=== PATIENT | male | born 1965 | race Caucasian/White ===

== ENCOUNTER 2020-11-13 13:47 | Emergency (ER) | payer SELFPAY ==
[2020-11-13] MEDS ORDERED: Sodium Chloride 0.9% 10 ML Syringe FLUSH PRN (13:55)
[2020-11-13 13:57] VITALS: BP 128/85; PULSE 95
[2020-11-13] MEDS ORDERED: Aspirin 81 MG Tab.Chew PO ONE (13:57)
--- NOTE | 2020-11-13 14:28 | EDM.PDOC ---
ED HPI GENERAL MEDICAL PROBLEM - General Chief Complaint: Cardiovascular Problem Stated Complaint: CHEST TIGHTNESS/ DIABETIC/ ALL OVER PAIN Time Seen by Provider: 11/13/20 13:55 Source of Information: Reports: Patient, RN Notes Reviewed History Limitations: Reports: No Limitations - History of Present Illness INITIAL COMMENTS - FREE TEXT/NARRATIVE: Patient is a 55-year-old male who presents to the ER for his chest discomfort. Patient notes this has been going on since around Monday/Monday. He has been having intermittent issues, where he feels chest tightness in the morning. He states he has no chest tightness at this time. He notes that it does make some feel drained or fatigued. He is called off work a few times this week because he just could not get himself going enough to get to work. He also has a history of diabetes with ongoing neuropathy issues. He was a patient of Dr. Jeff Reynaga, but has since switched to Leonela Black. Patient's had no fevers or chills, cough or shortness of breath, or any sort of nausea/vomiting/diarrhea. He does note remote loss of appetite in the mornings when he is feeling unwell. He also states that he felt some "chest fluttering from time to time". Patient states that he has been told he has a history of a heart murmur, he has had rheumatic fever, and endocarditis. Patient denies any sort of cardiac history like CO/stents, or A. fib. - Related Data Allergies Allergy/AdvReac Type Severity Reaction Status Date / Time No Known Allergies Allergy Verified 11/13/20 13:57 Home Meds: Home Meds Dapagliflozin/Metformin HCl [Xigduo Xr 5 mg-1,000 mg Tablet] 1,000 mg PO DAILY 03/05/16 [History] Famotidine [Pepcid] 40 mg PO QAM #10 tablet 03/05/16 [Rx] Simvastatin [Zocor] 40 mg PO BEDTIME 03/05/16 [History] methylPREDNISolone [Medrol] 4 mg PO ASDIRECTED #21 dospk 03/05/16 [Rx] oxyCODONE HCl/Acetaminophen [oxyCODONE-Acetaminophen 5-325] 1 mg PO Q4H PRN 03/05/16 [History] Metoprolol Succinate 25 mg PO DAILY #30 tab.er.24h 11/13/20 [Rx] Rivaroxaban [Xarelto] 20 mg PO DAILY #30 tablet 11/13/20 [Rx] Past Medical History Cardiovascular History: Reports: High Cholesterol, Other (See Below) Other Cardiovascular History: endocarditis at 15 Neurological History: Reports: Neuropathy, Peripheral Endocrine/Metabolic History: Reports: Diabetes, Type II, Obesity/BMI 30+ Dermatologic History: Reports: Other (See Below) Other Dermatologic History: contact dermatitis - Infectious Disease History Infectious Disease History: Reports: Chicken Pox, Measles, Rheumatic Fever Social & Family History - Tobacco Use Tobacco Use Status *Q: Never Tobacco User - Recreational Drug Use Recreational Drug Use: No ED ROS GENERAL - Review of Systems Review Of Systems: Comprehensive ROS is negative, except as noted in HPI. ED EXAM, GENERAL - Physical Exam Exam: See Below Exam Limited By: No Limitations General Appearance: Alert, WD/WN, No Apparent Distress Respiratory/Chest: No Respiratory Distress, Lungs Clear, Normal Breath Sounds, No Accessory Muscle Use, Chest Non-Tender Cardiovascular: Normal Peripheral Pulses, No Edema, Other (regularly irregular) Peripheral Pulses: 2+: Radial (L), Radial (R) Extremities: Normal Inspection, Normal Capillary Refill Neurological: Alert, Oriented, Normal Cognition, No Motor/Sensory Deficits Psychiatric: Normal Affect, Normal Mood Skin Exam: Warm, Dry, Intact, Normal Color, No Rash #1 Interpretation EKG Date: 11/13/20 Time: 13:55 Rhythm: A-Fib (Rate of 70 to 155/min) Rate (Beats/Min): 89 [place]: Normal P-Wave: Present QRS: RBBB ST-T: Normal QT: Normal EKG Interpretation Comments: No obvious ischemia or acute ST changes noted, reviewed by myself and Dr. Zhang. Course - Vital Signs Last Recorded V/S: Last Vital Signs Temp 97.5 F 11/13/20 13:54 Pulse 95 11/13/20 13:54 Resp 18 11/13/20 13:54 BP 128/85 11/13/20 13:54 Pulse Ox 96 11/13/20 13:54 - Orders/Labs/Meds Orders: Active Orders 24 hr Category Date Time Status EKG Documentation Completion [RC] STAT Care 11/13/20 13:55 Ordered Peripheral IV Care [RC] . DIRECTED Care 11/13/20 13:55 Ordered Chest 1V Frontal [CR] Stat Exams 11/13/20 13:55 Ordered Sodium Chloride 0.9% [Saline Flush] Med 11/13/20 13:55 Ordered 10 ml FLUSH ASDIRECTED PRN Peripheral IV Insertion Adult [OM.PC] Stat Oth 11/13/20 13:55 Ordered Medication Orders Sodium Chloride (Sodium Chloride 0.9% 10 Ml Syringe) 10 ml FLUSH ASDIRECTED PRN PRN Reason: Keep Vein Open Last Admin: 11/13/20 14:02 Dose: 10 ml Documented by: ANN Labs: Laboratory Tests 11/13/20 11/13/20 11/13/20 Range/Units 14:00 14:00 14:00 WBC 3.32 L (4.23-9.07) K/mm3 RBC 4.94 (4.63-6.08) M/mm3 Hgb 14.3 (13.7-17.5) gm/dl Hct 42.4 (40.1-51.0) % MCV 85.8 (79.0-92.2) fl MCH 28.9 (25.7-32.2) pg MCHC 33.7 (32.2-35.5) g/dl RDW Std Deviation 39.4 (35.1-43.9) fL Plt Count 234 (163-337) K/mm3 MPV 9.8 (9.4-12.3) fl Neut % (Auto) 50.9 (34.0-67.9) % Lymph % (Auto) 30.4 (21.8-53.1) % [place] % (Auto) 13.3 H (5.3-12.2) % Eos % (Auto) 4.2 (0.8-7.0) Baso % (Auto) 0.6 (0.1-1.2) % Neut # (Auto) 1.69 L (1.78-5.38) K/mm3 Lymph # (Auto) 1.01 L (1.32-3.57) K/mm3 [place] # (Auto) 0.44 (0.30-0.82) K/mm3 Eos # (Auto) 0.14 (0.04-0.54) K/mm3 Baso # (Auto) 0.02 (0.01-0.08) K/mm3 PT 11.7 (9.7-12.0) SECONDS INR 1.10 APTT 28.2 (21.7-31.4) SECONDS Sodium 141 (136-145) mEq/L Potassium 4.1 (3.5-5.1) mEq/L Chloride 106 (98-107) mEq/L Carbon Dioxide 27 (21-32) mEq/L Anion Gap 12.1 (5-15) BUN 15 (7-18) mg/dL Creatinine 0.9 (0.7-1.3) mg/dL Est Cr Clr Drug Dosing 96.45 mL/min Estimated GFR (MDRD) > 60 (>60) mL/min BUN/Creatinine Ratio 16.7 (14-18) Glucose 247 H (74-106) mg/dL Calcium 8.1 L (8.5-10.1) mg/dL Magnesium 2.0 (1.8-2.4) mg/dl Total Bilirubin 0.7 (0.2-1.0) mg/dL AST 27 (15-37) U/L ALT 59 (16-63) U/L Alkaline Phosphatase 73 (46-116) U/L Troponin I < 0.017 (0.00-0.056) ng/mL NT-Pro-B Natriuret Pep (0-125) pg/mL Total Protein 6.8 (6.4-8.2) g/dl Albumin 3.6 (3.4-5.0) g/dl Globulin 3.2 gm/dL Albumin/Globulin Ratio 1.1 (1-2) 11/13/20 Range/Units 14:00 WBC (4.23-9.07) K/mm3 RBC (4.63-6.08) M/mm3 Hgb (13.7-17.5) gm/dl Hct (40.1-51.0) % MCV (79.0-92.2) fl MCH (25.7-32.2) pg MCHC (32.2-35.5) g/dl RDW Std Deviation (35.1-43.9) fL Plt Count (163-337) K/mm3 MPV (9.4-12.3) fl Neut % (Auto) (34.0-67.9) % Lymph % (Auto) (21.8-53.1) % [place] % (Auto) (5.3-12.2) % Eos % (Auto) (0.8-7.0) Baso % (Auto) (0.1-1.2) % Neut # (Auto) (1.78-5.38) K/mm3 Lymph # (Auto) (1.32-3.57) K/mm3 [place] # (Auto) (0.30-0.82) K/mm3 Eos # (Auto) (0.04-0.54) K/mm3 Baso # (Auto) (0.01-0.08) K/mm3 PT (9.7-12.0) SECONDS INR APTT (21.7-31.4) SECONDS Sodium (136-145) mEq/L Potassium (3.5-5.1) mEq/L Chloride (98-107) mEq/L Carbon Dioxide (21-32) mEq/L Anion Gap (5-15) BUN (7-18) mg/dL Creatinine (0.7-1.3) mg/dL Est Cr Clr Drug Dosing mL/min Estimated GFR (MDRD) (>60) mL/min BUN/Creatinine Ratio (14-18) Glucose (74-106) mg/dL Calcium (8.5-10.1) mg/dL Magnesium (1.8-2.4) mg/dl Total Bilirubin (0.2-1.0) mg/dL AST (15-37) U/L ALT (16-63) U/L Alkaline Phosphatase (46-116) U/L Troponin I (0.00-0.056) ng/mL NT-Pro-B Natriuret Pep 584 H (0-125) pg/mL Total Protein (6.4-8.2) g/dl Albumin (3.4-5.0) g/dl Globulin gm/dL Albumin/Globulin Ratio (1-2) Meds: Medications Generic Name Dose Route Start Last Admin Trade Name Freq PRN Reason Stop Dose Admin Sodium Chloride 10 ml 11/13/20 13:55 11/13/20 14:02 Sodium Chloride 0.9% 10 Ml Syringe FLUSH 10 ml ASDIRECTED PRN Administration Keep Vein Open Discontinued Medications Generic Name Dose Route Start Last Admin Trade Name Freq PRN Reason Stop Dose Admin Aspirin 324 mg 11/13/20 13:57 11/13/20 14:05 Aspirin 81 Mg Tab.Chew PO 11/13/20 13:58 324 mg ONETIME ONE Administration - Re-Assessments/Exams Free Text/Narrative Re-Assessment/Exam: 11/13/20 14:29 Patient presents to the ER for his ongoing chest discomfort. We will go ahead and get a EKG, chest x-ray, labs to rule out myocardial infarction in nature. EKG done at the time of triage does show atrial fibrillation at a rate of 70 to 155 bpm. He does have a right bundle branch block pattern as well determined by myself and Dr. Zhang. Again patient's not been told he has had atrial fibrillation in the past, so this would be new onset. 11/13/20 14:58 Labs have resulted, CBC does show a modestly decreased white count at 3.32, coagulation studies that are unremarkable, metabolic panel essentially unremarkable his glucose is 247, BNP is slightly elevated at 584. Patient's troponin is undetectably low. I did speak with Dr. Zhang regarding this patient's new onset A. fib, he does state that the patient should be placed on metoprolol succinate and started on a blood thinner. Departure - Departure Time of Disposition: 15:21 Disposition: Home, Self-Care 01 Condition: Good Clinical Impression: Atrial fibrillation by electrocardiogram, Chest tightness Prescriptions: Metoprolol Succinate 25 mg PO DAILY #30 tab.er.24h Rivaroxaban [Xarelto] 20 mg PO DAILY #30 tablet Instructions: Atrial Fibrillation, [id number] Referrals: Leonela Black NP [Primary Care Provider] - Forms: ED Department Discharge Additional Instructions: You were evaluated in the ER today for your chest discomfort and ongoing symptoms for roughly 1 week. At the time of triage, you were found to be in atrial fibrillation, which is a condition of the heart not pumping the blood effectively. Management of this is to be started on blood thinners, and a blood pressure medication that helps control heart rate. Dosing for both of these medications be 1 tablet daily. These medications were electronically prescribed to the clinic pharmacy located in the [facility]. You will need to follow-up with your regular care provider, sometime next week just to make sure that your symptoms are getting better as expected. All other laboratory evaluation done at today's visit, was unremarkable. You are not suffering from a heart attack at today's visit. Please return to the ER at any time if symptoms change or worsen. Sepsis Event Note (ED) - Evaluation Sepsis Screening Result: No Definite Risk - Focused Exam Vital Signs: Vital Signs Temp Pulse Resp BP Pulse Ox 11/13/20 13:54 97.5 F 95 18 128/85 96 - My Orders Last 24 Hours: My Active Orders 11/13/20 13:55 EKG Documentation Completion [RC] STAT Peripheral IV Care [RC] . DIRECTED Chest 1V Frontal [CR] Stat Sodium Chloride 0.9% [Saline Flush] 10 ml FLUSH ASDIRECTED PRN Peripheral IV Insertion Adult [OM.PC] Stat - Assessment/Plan Last 24 Hours: My Active Orders 11/13/20 13:55 EKG Documentation Completion [RC] STAT Peripheral IV Care [RC] . DIRECTED Chest 1V Frontal [CR] Stat Sodium Chloride 0.9% [Saline Flush] 10 ml FLUSH ASDIRECTED PRN Peripheral IV Insertion Adult [OM.PC] Stat
--- NOTE | 2020-11-16 07:17 | CR ---
Chest: Portable view of the chest was obtained. Comparison: No prior chest imaging. Heart size and mediastinum are normal. Lungs are clear with no acute parenchymal change. No acute osseous abnormality is appreciated. Impression: 1. Nothing acute is appreciated on portable chest x-ray. Diagnostic code #1
== END 2020-11-13 15:38 | disposition home or self-care (01) ==
LOC: JD.ED 13:47
DX: I48.91 Unspecified atrial fibrillation (principal); E78.00 Pure hypercholesterolemia, unspecified; E66.9 Obesity, unspecified; Z68.30 Body mass index [BMI] 30.0-30.9, adult; E11.40 Type 2 diabetes mellitus with diabetic neuropathy, unspecified; Z79.899 Other long term (current) drug therapy
CPT/HCPCS: 36415; 71045; 80053; 83735; 83880; 84484; 85025; 85610; 85730; 93005; 99285; A9270; 93010; 99284

== ENCOUNTER 2020-12-05 22:35 | Emergency (ER) | payer OTHER ==
--- NOTE | 2020-12-05 22:42 | EDM.PDOC ---
ED HPI GENERAL MEDICAL PROBLEM - General Chief Complaint: Chest Pain Stated Complaint: CHEST PAINS Time Seen by Provider: 12/05/20 22:42 Source of Information: Reports: Patient History Limitations: Reports: No Limitations - History of Present Illness INITIAL COMMENTS - FREE TEXT/NARRATIVE: 55-year-old male presents to the ED with some central chest pressure discomfort that started about an hour ago that radiates up into his neck and towards his ears. He feels it is bilateral. Associated mild dyspnea. Patient was diagnosed with new onset atrial fibrillation on November 13 here in our ED B. He has been started on Xarelto 20 mg daily and is on metoprolol succinate 25 mg daily for rate control. He states he feels his heart intermittently missing beats and skipping and going a bit fast. Tonight it is been consistent for the last hour. He felt it was acting up last night as well and he fell asleep in the rocking chair at home until about 4:00 this morning. States was racing a little bit earlier this morning but then settled down after taking his morning medications. He denies cough sputum production fever or chills. At present he has very little chest discomfort less than 1 out of 10. ECG reveals atrial fibrillation with a rate of 80 to 160 bpm. He has a persistent right bundle branch block pattern with no definitive ischemia identified on tonight's ECG. Onset: Today, Sudden Onset Date: 12/05/20 Onset Time: 22:00 Duration: Minutes:, Constant Location: Reports: Chest (Central chest discomfort with radiation of discomfort up towards his neck in both ears. Associated mild dyspnea. Aware that his heart is skipping and racing.) Quality: Reports: Other Severity: Mild (Skipping and racing heart. Associated with central chest discomfort worse the chest discomfort got tonight was 3 out of 10. States is pretty well gone at the time of my exam.) Improves with: Reports: Rest Worsens with: Reports: Movement (Worse with exertion.) Context: Reports: Other (Spontaneous occurrence.). Denies: Activity, Exercise, Lifting, Sick Contact, Trauma Associated Symptoms: Reports: Chest Pain (Decreased appetite.), Cough, Loss of Appetite, Malaise, Shortness of Breath. Denies: No Other Symptoms, Confusion ( Central chest discomfort radiating up into both ears at times. Gone at the time I seen him in the ED.), cough w sputum (If he does cough is nonproductive.), Diaphoresis, Fever/Chills, Headaches, Nausea/Vomiting, Rash, Seizure, Syncope, Weakness Treatments [employer]: Reports: Other (see below) (None.) - Related Data Allergies Allergy/AdvReac Type Severity Reaction Status Date / Time No Known Allergies Allergy Verified 12/05/20 22:46 Home Meds: Home Meds Dapagliflozin/Metformin HCl [Xigduo Xr 5 mg-1,000 mg Tablet] 1,000 mg PO BID 03/05/16 [History] Famotidine [Pepcid] 40 mg PO QAM #10 tablet 03/05/16 [Rx] Simvastatin [Zocor] 40 mg PO BEDTIME 03/05/16 [History] Rivaroxaban [Xarelto] 20 mg PO DAILY #30 tablet 11/13/20 [Rx] Empagliflozin [Jardiance] 25 mg PO DAILY 12/05/20 [History] Metoprolol Succinate 50 mg PO DAILY 12/05/20 [History] Pregabalin 150 mg PO BID 12/05/20 [History] Past Medical History Cardiovascular History: Reports: High Cholesterol, Other (See Below) Other Cardiovascular History: endocarditis at 15 Neurological History: Reports: Neuropathy, Peripheral Endocrine/Metabolic History: Reports: Diabetes, Type II, Obesity/BMI 30+ Dermatologic History: Reports: Other (See Below) Other Dermatologic History: contact dermatitis - Infectious Disease History Infectious Disease History: Reports: Chicken Pox, Measles, Rheumatic Fever Social & Family History - Family History Cardiac: Reports: CAD (Father father), Heart Failure - Living Situation & Occupation Living situation: Reports: Occupation: Employed [employer] - Review of Systems Review Of Systems: See Below Constitutional: Reports: Malaise, Fatigue, Decreased Appetite. Denies: Fever, Chills, Weight Loss HEENT: Reports: Glasses Respiratory: Reports: Shortness of Breath, Cough. Denies: Wheezing, Pleuritic Chest Pain, Sputum, Hemoptysis (Rare cough.) Cardiovascular: Reports: Chest Pain (Central chest discomfort rating up into both ears at times.), Dyspnea on Exertion, Palpitations (Sometimes quite frequently). Denies: Blood Pressure Problem, Claudication, Edema, Lightheadedne ss, Orthopnea Endocrine: Reports: Fatigue GI/Abdominal: Reports: Decreased Appetite : Reports: Frequency, Other (Nocturia x2) Musculoskeletal: Reports: Back Pain, Joint Pain Skin: Reports: Bruising (Bruises easily since placed on Xarelto.) Neurological: Reports: No Symptoms Psychiatric: Reports: No Symptoms Hematologic/Lymphatic: Reports: No Symptoms Immunologic: Reports: No Symptoms ED EXAM, GENERAL - Physical Exam Exam: See Below Exam Limited By: No Limitations General Appearance: Alert, WD/WN, No Apparent Distress, Other (Temperature is 36.2 degrees. Her heart rate was 102 but irregularly irregular.) Eye Exam: Bilateral Eye: Normal Inspection (No scleral icterus or blepharal pallor.), PERRL Throat/Mouth: Normal Inspection, Normal Lips, Normal Oropharynx Head: Atraumatic, Normocephalic Neck: Normal Inspection, Supple, Non-Tender, Full Range of Motion. No: Carotid Bruit, Lymphadenopathy (L), Lymphadenopathy (R) Respiratory/Chest: No Respiratory Distress, No Accessory Muscle Use, Decreased Breath Sounds (Mildly decreased breath sounds to the), Rales. No: Respiratory Distress, Rhonchi, Wheezing (Few crackles appreciated right lung base.) Cardiovascular: Normal Peripheral Pulses, No Edema ( atrial fibrillation with a rate of 80 to 160 bpm.), No Murmur, No Rub, Irregularly Irregular (ECG reveals) Peripheral Pulses: 2+: Posterior Tibial (L), Posterior Tibial (R), Dorsalis Pedis (L), Dorsalis Pedis (R), 3+: Carotid (L), Carotid (R) GI/Abdominal: Normal Bowel Sounds, Soft, Non-Tender, No Organomegaly, No Distention Back Exam: Normal Inspection, Full Range of Motion. No: CVA Tenderness (L), CVA Tenderness (R) Extremities: Normal Inspection, Normal Range of Motion, Non-Tender, No Pedal Edema Neurological: Alert, Oriented, CN II-XII Intact, Normal Cognition, Normal Gait Psychiatric: Normal Affect, Normal Mood Skin Exam: Warm, Dry, Intact, Normal Color, No Rash #1 Interpretation EKG Date: 12/05/20 Time: 22:39 Rhythm: A-Fib (With rate of 80 to 160 bpm.) Rate (Beats/Min): 114 Mark Center: Normal P-Wave: Absent QRS: RBBB ST-T: Other (Wandering baseline with no definitive evidence of ischemic change) QT: Prolonged EKG Interpretation Comments: Abnormal ECG Course - Vital Signs Last Recorded V/S: Last Vital Signs Temp 36.2 C 12/05/20 22:43 Pulse 92 12/06/20 00:53 Resp 12 12/05/20 22:43 BP 118/86 12/06/20 00:53 Pulse Ox 97 12/05/20 22:43 - Orders/Labs/Meds Orders: Active Orders 24 hr Category Date Time Status Chest 1V Frontal [CR] Stat Exams 12/05/20 22:51 Taken Labs: Laboratory Tests 12/05/20 12/05/20 12/05/20 Range/Units 22:50 22:50 22:50 WBC 6.22 (4.23-9.07) K/mm3 RBC 5.34 (4.63-6.08) M/mm3 Hgb 15.4 (13.7-17.5) gm/dl Hct 46.0 (40.1-51.0) % MCV 86.1 (79.0-92.2) fl MCH 28.8 (25.7-32.2) pg MCHC 33.5 (32.2-35.5) g/dl RDW Std Deviation 41.0 (35.1-43.9) fL Plt Count 260 (163-337) K/mm3 MPV 10.4 (9.4-12.3) fl Neut % (Auto) 55.0 (34.0-67.9) % Lymph % (Auto) 30.5 (21.8-53.1) % [place] % (Auto) 9.2 (5.3-12.2) % Eos % (Auto) 3.9 (0.8-7.0) Baso % (Auto) 0.8 (0.1-1.2) % Neut # (Auto) 3.42 (1.78-5.38) K/mm3 Lymph # (Auto) 1.90 (1.32-3.57) K/mm3 [place] # (Auto) 0.57 (0.30-0.82) K/mm3 Eos # (Auto) 0.24 (0.04-0.54) K/mm3 Baso # (Auto) 0.05 (0.01-0.08) K/mm3 PT 13.5 H (9.7-12.0) SECONDS INR 1.27 APTT 36.4 H (21.7-31.4) SECONDS Sodium 140 (136-145) mEq/L Potassium 4.5 (3.5-5.1) mEq/L Chloride 102 (98-107) mEq/L Carbon Dioxide 26 (21-32) mEq/L Anion Gap 16.5 H (5-15) BUN 15 (7-18) mg/dL Creatinine 1.0 (0.7-1.3) mg/dL Est Cr Clr Drug Dosing 89.46 mL/min Estimated GFR (MDRD) > 60 (>60) mL/min BUN/Creatinine Ratio 15.0 (14-18) Glucose 294 H (70-99) mg/dL Calcium 8.8 (8.5-10.1) mg/dL Magnesium 1.9 (1.8-2.4) mg/dL Total Bilirubin 0.6 (0.2-1.0) mg/dL AST 24 (15-37) U/L ALT 60 (16-63) U/L Alkaline Phosphatase 93 (46-116) U/L CK-MB (CK-2) 2.6 (0-3.6) ng/ml Troponin I < 0.017 (0.00-0.056) ng/mL NT-Pro-B Natriuret Pep (0-125) pg/mL Total Protein 7.5 (6.4-8.2) g/dl Albumin 4.0 (3.4-5.0) g/dl Globulin 3.5 gm/dL Albumin/Globulin Ratio 1.1 (1-2) // Range/Units 22:50 WBC (4.23-9.07) K/mm3 RBC (4.63-6.08) M/mm3 Hgb (13.7-17.5) gm/dl Hct (40.1-51.0) % MCV (79.0-92.2) fl MCH (25.7-32.2) pg MCHC (32.2-35.5) g/dl RDW Std Deviation (35.1-43.9) fL Plt Count (163-337) K/mm3 MPV (9.4-12.3) fl Neut % (Auto) (34.0-67.9) % Lymph % (Auto) (21.8-53.1) % [place] % (Auto) (5.3-12.2) % Eos % (Auto) (0.8-7.0) Baso % (Auto) (0.1-1.2) % Neut # (Auto) (1.78-5.38) K/mm3 Lymph # (Auto) (1.32-3.57) K/mm3 [place] # (Auto) (0.30-0.82) K/mm3 Eos # (Auto) (0.04-0.54) K/mm3 Baso # (Auto) (0.01-0.08) K/mm3 PT (9.7-12.0) SECONDS INR APTT (21.7-31.4) SECONDS Sodium (136-145) mEq/L Potassium (3.5-5.1) mEq/L Chloride (98-107) mEq/L Carbon Dioxide (21-32) mEq/L Anion Gap (5-15) BUN (7-18) mg/dL Creatinine (0.7-1.3) mg/dL Est Cr Clr Drug Dosing mL/min Estimated GFR (MDRD) (>60) mL/min BUN/Creatinine Ratio (14-18) Glucose (70-99) mg/dL Calcium (8.5-10.1) mg/dL Magnesium (1.8-2.4) mg/dL Total Bilirubin (0.2-1.0) mg/dL AST (15-37) U/L ALT (16-63) U/L Alkaline Phosphatase (46-116) U/L CK-MB (CK-2) (0-3.6) ng/ml Troponin I (0.00-0.056) ng/mL NT-Pro-B Natriuret Pep 53 (0-125) pg/mL Total Protein (6.4-8.2) g/dl Albumin (3.4-5.0) g/dl Globulin gm/dL Albumin/Globulin Ratio (1-2) Meds: Medications Discontinued Medications Generic Name Dose Route Start Last Admin Trade Name Freq PRN Reason Stop Dose Admin Sodium Chloride 1,000 mls @ 100 mls/hr 12/05/20 23:00 12/05/20 22:59 Normal Saline IV 100 mls/hr ASDIRECTED ABY Administration Metoprolol Tartrate 5 mg 12/05/20 22:50 12/05/20 23:04 Metoprolol Tartrate 5 Mg/5 Ml Sdv IVPUSH 12/05/20 22:51 5 mg ONETIME ONE Administration Metoprolol Tartrate 5 mg 12/06/20 00:50 12/06/20 00:53 Metoprolol Tartrate 5 Mg/5 Ml Sdv IVPUSH 12/06/20 00:51 5 mg ONETIME ONE Administration - Re-Assessments/Exams Free Text/Narrative Re-Assessment/Exam: 12/06/20 00:10 White count is 6.22. Differential shows 55% neutrophils. Hemoglobin is 15.4 with hematocrit of 46.0 MCV is normal at 86.1. Platelet count 260,000. PT is 13.5 with an INR of 1.27. PTT is elevated at 36.4. Sodium 140 with a potassium of 4.5. Chloride 102 with a bicarb of 26. Anion gap is 16.5. BUN is 15 with a creatinine of 1.0 and a GFR greater than 60. Glucose is elevated at 294. Calcium is 8.8 with a magnesium of 1.9. Liver function normal CK-MB is 2.6 troponin I is less than 0.017 total protein 7.5 albumin fraction 4.0 Free Text/Narrative Re-Assessment/Exam: 12/06/20 00:41 BNP is only 53. Patient remains pain-free. Heart rate will still occasionally skip up to 125 bpm. I am going to repeat his Lopressor 5 mg IV and have him take an extra dose of metoprolol succinate 25 mg by mouth. He was recently given a prescription for 50 mg of metoprolol succinate yesterday but he has yet to start them and he will take 1 tomorrow morning. Departure - Departure Time of Disposition: 00:58 Disposition: Home, Self-Care 01 Reason for Transfer *Q: Other Condition: Fair Clinical Impression: Chronic atrial fibrillation with rapid ventricular response, Chest tightness, Angina pectoris without myocardial infarction Instructions: Atrial Fibrillation Referrals: Leonela Black NP [Primary Care Provider] - Forms: ED Department Discharge Additional Instructions: Evaluation in the emergency room tonight in regards to atrial fibrillation that was diagnosed 2 weeks ago but likely has been coming off and on for over a year since you have had palpitations and symptoms dating back over a year. He was finally just diagnosed 2 weeks ago I believe November 13. You were started on metoprolol succinate 25 mg tablet once daily for rate control and Xarelto which you are currently taking 20 mg once daily to prevent stroke. Yesterday you were given a prescription for metoprolol succinate 50 mg once daily which I agree with. I would suggest taking metoprolol succinate 25 mg tablets 1 in the morning and 1 after supper until they are gone and then starting the metoprolol succinate 50 mg once daily in the morning. This will likely prevent or at least give you better atrial fibrillation rate control which was the problem tonight as it was going up to as high as 160 bpm. Lab test showed no evidence of extra fluid buildup in your lungs or heart failure and no sign of heart attack or any damage to the heart. You were treated with a dose of Lopressor 5 mg IV x2 to provide rate control and an additional dose of metoprolol succinate was advised to be taken from your own medications. This should bring rate control overnight. Please take metoprolol succinate once again in the morning as per your usual and then a second 1 after supper tomorrow night. Use the 25 mg tablets up and then start the 50 mg tablet in the morning. Return to the ED if any further similar problems occur. Sepsis Event Note (ED) - Focused Exam Vital Signs: Vital Signs Temp Pulse Pulse Resp BP BP Pulse Ox 12/06/20 00:53 92 118/86 12/05/20 23:04 96 116/78 12/05/20 22:43 36.2 C 102 H 12 142/94 H 97 - My Orders Last 24 Hours: My Active Orders 12/05/20 22:51 Chest 1V Frontal [CR] Stat - Assessment/Plan Last 24 Hours: My Active Orders 12/05/20 22:51 Chest 1V Frontal [CR] Stat
[2020-12-05] MEDS ORDERED: Metoprolol Tartrate 5 MG/5 ML SDV IVPUSH ONE (22:50)
[2020-12-05] MEDS ORDERED: Sodium Chloride 0.9% 1,000 ML IV SCH (23:00)
[2020-12-06] MEDS ORDERED: Metoprolol Tartrate 5 MG/5 ML SDV IVPUSH ONE (00:50)
[2020-12-06 00:54] VITALS: BP 118/86; PULSE 92
--- NOTE | 2020-12-06 10:44 | CR ---
Chest: Portable view of the chest was obtained. Comparison: Prior chest x-ray of 11/13/20. Heart size and mediastinum are within normal limits. Lungs are clear with no acute parenchymal change. Bony structure shows nothing acute. Impression: 1. Nothing acute is appreciated on portable chest x-ray. Diagnostic code #1
== END 2020-12-06 01:25 | disposition home or self-care (01) ==
LOC: JD.ED 22:35
DX: I48.20 Chronic atrial fibrillation, unspecified (principal); I20.9 Angina pectoris, unspecified; E78.00 Pure hypercholesterolemia, unspecified; E11.42 Type 2 diabetes mellitus with diabetic polyneuropathy; E66.9 Obesity, unspecified; Z68.30 Body mass index [BMI] 30.0-30.9, adult; Z79.01 Long term (current) use of anticoagulants; Z79.84 Long term (current) use of oral hypoglycemic drugs; Z79.899 Other long term (current) drug therapy
CPT/HCPCS: 36415; 71045; 80053; 82553; 83735; 83880; 84484; 85025; 85610; 85730; 93005; 96374; 96376; 99285; J3490; J7030; 93010; 99284

== ENCOUNTER 2020-12-18 20:49 | Emergency (ER) | payer OTHER ==
[2020-12-18] MEDS ORDERED: Sodium Chloride 0.9% 10 ML Syringe FLUSH PRN (21:03)
[2020-12-18 21:04] VITALS: BP 141/81; PULSE 105
[2020-12-18] MEDS ORDERED: Magnesium Sulfate/Water 2 GM in Premix Bag 1 BAG IV ONE (22:40)
--- NOTE | 2020-12-18 22:58 | EDM.PDOC ---
ED HPI GENERAL MEDICAL PROBLEM - General Chief Complaint: Chest Pain Stated Complaint: CHEST PAIN Time Seen by Provider: 12/18/20 22:27 Source of Information: Reports: Patient History Limitations: Reports: No Limitations - History of Present Illness INITIAL COMMENTS - FREE TEXT/NARRATIVE: Mr. Baker is a pleasant 55-year-old gentleman with a past medical history significant for paroxysmal atrial fibrillation, on Xarelto and metoprolol, who now presents the ED after developing intermittent chest tightness, a discomfort, not a pain, and dyspnea on exertion, yesterday, , 12/17/2020. He has felt rapid, although not irregular, palpitations, since yesterday. No dyspnea at rest, and no associated nausea, diaphoresis, or sense of impending doom. He states that he has had similar symptoms numerous times in the past. Here in the ED, the patient's initial BP is found to be mildly elevated at 141/81, with mild tachycardia of 105 bpm. He is afebrile, saturating 96% on room air. He appears to be comfortable, in no acute distress. An ECG, obtained at triage, finds the patient to be in atrial fibrillation at 103 bpm. Prior to yesterday, the patient denies having a recent fever, chills, sore throat, ear pain, nasal or sinus congestion, cough, dyspnea, chest pain, palpitations, nausea, vomiting, constipation, diarrhea, abdominal pain, urinary symptoms, recent weight gain or weight loss, recent bloody bowel movements or black bowel movements, recent joint aches, headaches, or rashes. The patient's PCP is Leonela Black NP. He does not recall the name of the Financial Project Manager that he is scheduled to meet on 12/29/2020. - Related Data Allergies Allergy/AdvReac Type Severity Reaction Status Date / Time No Known Allergies Allergy Verified 12/18/20 21:02 Home Meds: Home Meds Dapagliflozin/Metformin HCl [Xigduo Xr 5 mg-1,000 mg Tablet] 1,000 mg PO BID 03/05/16 [History] Famotidine [Pepcid] 40 mg PO QAM #10 tablet 03/05/16 [Rx] Simvastatin [Zocor] 40 mg PO BEDTIME 03/05/16 [History] Rivaroxaban [Xarelto] 20 mg PO DAILY #30 tablet 11/13/20 [Rx] Empagliflozin [Jardiance] 25 mg PO DAILY 12/05/20 [History] Metoprolol Succinate 50 mg PO DAILY 12/05/20 [History] Pregabalin 150 mg PO BID 12/05/20 [History] Past Medical History HEENT History: Reports: Impaired Vision Cardiovascular History: Reports: Afib (paroxysmal), High Cholesterol, PVD (BLEs) Neurological History: Reports: Neuropathy, Diabetic Endocrine/Metabolic History: Reports: Diabetes, Type II, Obesity/BMI 30+ Oncologic (Cancer) History: Reports: Squamous Cell Carcinoma (face, excised) - Infectious Disease History Infectious Disease History: Reports: Chicken Pox, Measles, Rheumatic Fever - Past Surgical History HEENT Surgical History: Reports: Oral Surgery (dental extractions) Oncologic Surgical History: Reports: Other (See Below) (SCC excised from face) Social & Family History - Tobacco Use Tobacco Use Status *Q: Never Tobacco User Second Hand Smoke Exposure: No - Caffeine Use Caffeine Use: Reports: Soda - Alcohol Use Alcohol Use History: No - Recreational Drug Use Recreational Drug Use: No - Living Situation & Occupation Living situation: Reports: , with Spouse Occupation: Unemployed ED ROS GENERAL - Review of Systems Review Of Systems: Comprehensive ROS is negative, except as noted in HPI. ED EXAM, GENERAL - Physical Exam Exam: See Below Exam Limited By: No Limitations General Appearance: Alert, WD/WN, No Apparent Distress Eye Exam: Bilateral Eye: EOMI, Normal Inspection Ears: Normal External Exam, Hearing Grossly Normal Nose: Normal Inspection Throat/Mouth: Normal Inspection, Normal Lips, Normal Voice, No Airway Compromise Head: Atraumatic, Normocephalic Neck: Normal Inspection, Full Range of Motion Respiratory/Chest: No Respiratory Distress, Lungs Clear, Normal Breath Sounds, No Accessory Muscle Use Cardiovascular: Normal Peripheral Pulses, No Edema, No Gallop, No JVD, No Murmur, No Rub, Irregularly Irregular (regular rate) Peripheral Pulses: 3+: Radial (L), Radial (R) GI/Abdominal: Normal Bowel Sounds, Soft, Non-Tender, No Organomegaly, No Distention, No Abnormal Bruit, No Mass Back Exam: Normal Inspection, Full Range of Motion, NT Extremities: Normal Inspection, Normal Range of Motion, No Pedal Edema, Normal Capillary Refill Neurological: Alert, Oriented, Normal Cognition, No Motor/Sensory Deficits Psychiatric: Normal Affect Skin Exam: Warm, Dry, Intact, Normal Color, No Rash #1 Interpretation EKG Date: 12/18/20 Time: 20:58 Rhythm: A-Fib Rate (Beats/Min): 103 [place]: Normal P-Wave: Absent QRS: Other (RBBB. Early transition) ST-T: Normal QT: Normal Comparison: No Change (12/05/2020) Course - Vital Signs Last Recorded V/S: Last Vital Signs Temp 36.1 C 12/18/20 20:59 Pulse 105 H 12/18/20 20:59 Resp 14 12/18/20 20:59 BP 141/81 H 12/18/20 20:59 Pulse Ox 96 12/18/20 20:59 - Orders/Labs/Meds Orders: Active Orders 24 hr Category Date Time Status Chest 1V Frontal [CR] Stat Exams 12/18/20 21:03 Taken Peripheral IV Insertion Adult [OM.PC] Stat Oth 12/18/20 21:03 Ordered Labs: Laboratory Tests 12/18/20 12/18/20 12/18/20 Range/Units 21:05 21:05 21:05 WBC 6.40 (4.23-9.07) K/mm3 RBC 5.02 (4.63-6.08) M/mm3 Hgb 14.5 (13.7-17.5) gm/dl Hct 43.1 (40.1-51.0) % MCV 85.9 (79.0-92.2) fl MCH 28.9 (25.7-32.2) pg MCHC 33.6 (32.2-35.5) g/dl RDW Std Deviation 40.5 (35.1-43.9) fL Plt Count 231 (163-337) K/mm3 MPV 10.2 (9.4-12.3) fl Neut % (Auto) 60.3 (34.0-67.9) % Lymph % (Auto) 24.1 (21.8-53.1) % Nolan % (Auto) 10.9 (5.3-12.2) % Eos % (Auto) 3.8 (0.8-7.0) Baso % (Auto) 0.6 (0.1-1.2) % Neut # (Auto) 3.86 (1.78-5.38) K/mm3 Lymph # (Auto) 1.54 (1.32-3.57) K/mm3 Nolan # (Auto) 0.70 (0.30-0.82) K/mm3 Eos # (Auto) 0.24 (0.04-0.54) K/mm3 Baso # (Auto) 0.04 (0.01-0.08) K/mm3 PT 12.3 H (9.7-12.0) SECONDS INR 1.15 APTT 30.2 (21.7-31.4) SECONDS Sodium 141 (136-145) mEq/L Potassium 4.1 (3.5-5.1) mEq/L Chloride 105 (98-107) mEq/L Carbon Dioxide 29 (21-32) mEq/L Anion Gap 11.1 (5-15) BUN 11 (7-18) mg/dL Creatinine 1.1 (0.7-1.3) mg/dL Est Cr Clr Drug Dosing 81.32 mL/min Estimated GFR (MDRD) > 60 (>60) mL/min BUN/Creatinine Ratio 10.0 L (14-18) Glucose 224 H (70-99) mg/dL Calcium 8.9 (8.5-10.1) mg/dL Magnesium 1.6 L (1.8-2.4) mg/dL Total Bilirubin 1.0 (0.2-1.0) mg/dL AST 19 (15-37) U/L ALT 48 (16-63) U/L Alkaline Phosphatase 82 (46-116) U/L Troponin I < 0.017 (0.00-0.056) ng/mL NT-Pro-B Natriuret Pep (0-125) pg/mL Total Protein 6.8 (6.4-8.2) g/dl Albumin 3.7 (3.4-5.0) g/dl Globulin 3.1 gm/dL Albumin/Globulin Ratio 1.2 (1-2) 12/18/20 Range/Units 21:05 WBC (4.23-9.07) K/mm3 RBC (4.63-6.08) M/mm3 Hgb (13.7-17.5) gm/dl Hct (40.1-51.0) % MCV (79.0-92.2) fl MCH (25.7-32.2) pg MCHC (32.2-35.5) g/dl RDW Std Deviation (35.1-43.9) fL Plt Count (163-337) K/mm3 MPV (9.4-12.3) fl Neut % (Auto) (34.0-67.9) % Lymph % (Auto) (21.8-53.1) % Nolan % (Auto) (5.3-12.2) % Eos % (Auto) (0.8-7.0) Baso % (Auto) (0.1-1.2) % Neut # (Auto) (1.78-5.38) K/mm3 Lymph # (Auto) (1.32-3.57) K/mm3 Nolan # (Auto) (0.30-0.82) K/mm3 Eos # (Auto) (0.04-0.54) K/mm3 Baso # (Auto) (0.01-0.08) K/mm3 PT (9.7-12.0) SECONDS INR APTT (21.7-31.4) SECONDS Sodium (136-145) mEq/L Potassium (3.5-5.1) mEq/L Chloride (98-107) mEq/L Carbon Dioxide (21-32) mEq/L Anion Gap (5-15) BUN (7-18) mg/dL Creatinine (0.7-1.3) mg/dL Est Cr Clr Drug Dosing mL/min Estimated GFR (MDRD) (>60) mL/min BUN/Creatinine Ratio (14-18) Glucose (70-99) mg/dL Calcium (8.5-10.1) mg/dL Magnesium (1.8-2.4) mg/dL Total Bilirubin (0.2-1.0) mg/dL AST (15-37) U/L ALT (16-63) U/L Alkaline Phosphatase (46-116) U/L Troponin I (0.00-0.056) ng/mL NT-Pro-B Natriuret Pep 286 H (0-125) pg/mL Total Protein (6.4-8.2) g/dl Albumin (3.4-5.0) g/dl Globulin gm/dL Albumin/Globulin Ratio (1-2) Meds: Medications Discontinued Medications Generic Name Dose Route Start Last Admin Trade Name Freq PRN Reason Stop Dose Admin Magnesium Sulfate 2 gm/ Premix 50 mls @ 12.5 mls/hr 12/18/20 22:40 12/18/20 23:04 IV 12/19/20 02:39 12.5 mls/hr ONETIME ONE Administration Sodium Chloride 10 ml 12/18/20 21:03 12/18/20 21:12 Sodium Chloride 0.9% 10 Ml Syringe FLUSH 10 ml ASDIRECTED PRN Administration Keep Vein Open - Re-Assessments/Exams Free Text/Narrative Re-Assessment/Exam: 12/18/20 22:53 As above, the patient has been experiencing intermittent chest tightness, rapid palpitations, and dyspnea on exertion since yesterday, with no other associated symptoms. Here in the ED, and an ECG obtained at triage found him to be in atrial fibrillation at 103 bpm, however, at present, without treatment, his HR is down to 86 bpm. He is already on Xarelto and metoprolol. His physical exam is remarkable for an irregularly irregular pulse, but is otherwise unremarkable. A portable chest radiograph appears to be grossly normal. The cardiac silhouette is within normal limits. No pulmonary vascular congestion. No pleural effusions seen on this AP view. No focal infiltrate. No pneumothorax. Formal read per the Radiologist pending. The patient's CBC is unremarkable. His CMP is remarkable for hyperglycemia of 224, and is otherwise unremarkable. His magnesium level is mildly depressed at 1.6. His troponin is undetectably low. His pro-BNP is mildly elevated at 286. His INR is slightly elevated at 1.15, with a PTT slightly elevated at 12.3, and PTT normal at 30.2. Based on the above, I have ordered a 2 g Mg-rider. The patient can be discharged home once it has finished infusing. Departure - Departure Time of Disposition: 02:25 Disposition: Home, Self-Care 01 Condition: Good Clinical Impression: Paroxysmal atrial fibrillation, Hypomagnesemia Instructions: Hypomagnesemia, Atrial Fibrillation, [id number] Referrals: Leonela Black NP [Primary Care Provider] - Forms: ED Department Discharge Additional Instructions: You were seen in the emergency room after developing intermittent chest tightness, rapid palpitations, and shortness of breath with exertion on . Work-up in the ER included several blood tests, chest x-ray, and an ECG. Your ECG found you to be in atrial fibrillation. It is most likely that you go into and out of atrial fibrillation. Your blood work found your magnesium level to be mildly low at 1.6. You were given magnesium replacement by IV in the ER. The remainder of your work-up was unremarkable. We recommend that you continue to take your current medications as prescribed. We recommend that you follow-up with your Financial Project Manager at your previously scheduled appointment on 12/29/2020. If any other problems, please do not hesitate to return to the ER. Sepsis Event Note (ED) - Evaluation Sepsis Screening Result: No Definite Risk - Focused Exam Vital Signs: Vital Signs Temp Pulse Resp BP Pulse Ox 12/18/20 20:59 36.1 C 105 H 14 141/81 H 96
--- NOTE | 2020-12-19 17:18 | CR ---
Chest: Portable view of the chest was obtained. Comparison: Prior chest x-rays of 12/05/20 and 11/13/20. Heart size and mediastinum are within normal limits. Lungs are clear with no acute parenchymal change. Bony structures show nothing acute. Impression: 1. Nothing acute is appreciated on portable chest x-ray. No appreciable change is seen from previous chest x-rays. Diagnostic code #1
== END 2020-12-19 02:26 | disposition home or self-care (01) ==
LOC: JD.ED 20:49
DX: I48.0 Paroxysmal atrial fibrillation (principal); E83.42 Hypomagnesemia; E78.00 Pure hypercholesterolemia, unspecified; E11.40 Type 2 diabetes mellitus with diabetic neuropathy, unspecified; E66.9 Obesity, unspecified; Z68.30 Body mass index [BMI] 30.0-30.9, adult; Z79.01 Long term (current) use of anticoagulants
CPT/HCPCS: 36415; 71045; 80053; 83735; 83880; 84484; 85025; 85610; 85730; 93005; 96365; 96366; 99285; J3475; 93010; 99283

== ENCOUNTER 2023-07-25 07:16 | Emergency (ER) | payer MEDICARE, OTHER ==
[2023-07-25 08:11] VITALS: BP 146/94; PULSE 88
[2023-07-25 08:44] LABS: CORONAVIRUS COVID-19 NAA NEGATIVE (NEGATIVE); INFLUENZA A NAA NEGATIVE (NEGATIVE); RESPIRATORY SYNCYTIAL VIR NAA NEGATIVE (NEGATIVE)
[2023-07-25] MEDS ORDERED: cefTRIAXone 1 GM, Lidocaine 1% 2.1 ML IM ONE ×2 (08:54)
== END 2023-07-25 09:20 | disposition home or self-care (01) ==
LOC: JD.ED 07:16
DX: J03.00 Acute streptococcal tonsillitis, unspecified (principal); I48.91 Unspecified atrial fibrillation; E78.00 Pure hypercholesterolemia, unspecified; E11.40 Type 2 diabetes mellitus with diabetic neuropathy, unspecified; E66.9 Obesity, unspecified; Z79.02 Long term (current) use of antithrombotics/antiplatelets; Z79.4 Long term (current) use of insulin; Z79.84 Long term (current) use of oral hypoglycemic drugs; Z79.82 Long term (current) use of aspirin; Z79.899 Other long term (current) drug therapy
CPT/HCPCS: 0241U; 87651; 96372; 99283; J0696; J3490

== ENCOUNTER 2024-03-04 18:05 | Emergency (ER) | payer MEDICARE, OTHER ==
[2024-03-04] MEDS: Diphtheria,Pertussis(Acell),Tetanus Vaccine 0.5 ML Syringe IM ONE (18:30)
[2024-03-04] MEDS: Lidocaine 1% 10 ML MDV INJECT ONE (18:31)
[2024-03-04 19:01] VITALS: BP 133/74; PULSE 68
== END 2024-03-04 18:55 | disposition home or self-care (01) ==
LOC: JD.ED 18:05
DX: S61.211A Laceration without foreign body of left index finger without damage to nail, initial encounter (principal); I48.91 Unspecified atrial fibrillation; E78.00 Pure hypercholesterolemia, unspecified; E11.9 Type 2 diabetes mellitus without complications; E66.9 Obesity, unspecified; Z79.02 Long term (current) use of antithrombotics/antiplatelets; Z79.82 Long term (current) use of aspirin; Z79.4 Long term (current) use of insulin; Z79.84 Long term (current) use of oral hypoglycemic drugs; Z79.899 Other long term (current) drug therapy; W26.0XXA Contact with knife, initial encounter
CPT/HCPCS: 12001; 90471; 90715; 99282-25; 99283; J3490

== ENCOUNTER 2024-03-18 09:31 | Emergency (ER) | payer MEDICARE, OTHER ==
[2024-03-18 09:38] VITALS: BP 136/91
[2024-03-18] MEDS: Ciprofloxacin 0.3% Ophth Soln 5 ML Bottle EYEBOTH ONE (10:06)
[2024-03-18] MEDS: Doxycycline Monohydrate 100 MG Cap PO ONE (10:07)
[2024-03-18 11:10] VITALS: PULSE 80
== END 2024-03-18 10:30 | disposition home or self-care (01) ==
LOC: JD.ED 09:31
DX: H10.023 Other mucopurulent conjunctivitis, bilateral (principal); E78.00 Pure hypercholesterolemia, unspecified; E66.9 Obesity, unspecified; E11.9 Type 2 diabetes mellitus without complications; Z79.82 Long term (current) use of aspirin; Z79.84 Long term (current) use of oral hypoglycemic drugs; Z79.899 Other long term (current) drug therapy
CPT/HCPCS: 99282; A9270; 99283

== ENCOUNTER 2024-08-08 12:12 | Emergency (ER) | payer MEDICARE, OTHER ==
[2024-08-08] MEDS: Oxymetazoline 0.05% Nasal Spray 30 ML Bottle NAS ONE (13:03)
[2024-08-08 13:12] VITALS: BP 90/48; PULSE 94
[2024-08-08 13:19] LABS: BASOPHILS ABSOLUTE AUTO 0.1 K/mm3 (0.0-0.2); BASOPHILS PERCENT AUTO 0.8 % (0.0-1.0); EOSINOPHILS ABSOLUTE AUTO 0.2 K/mm3 (0.0-0.4); EOSINOPHILS PERCENT AUTO 3.4 % (0.0-6.0); HEMATOCRIT 47.1 % (42.0-52.0); HEMOGLOBIN 15.7 gm/dl (14.0-18.0); IMMATURE GRAN ABSOLUTE AUTO 0.04 K/mm3 (0.00-0.05); IMMATURE GRAN PERCENT AUTO 0.6 % (0.0-0.4); LYMPHOCYTES ABSOLUTE AUTO 1.5 K/mm3 (1.0-4.8); LYMPHOCYTES PERCENT AUTO 23.6 % (24.0-44.0); MEAN CORPUSCULAR HEMOGLOBIN 28.7 pg (28.0-32.0); MEAN CORPUSCULAR HGB CONC 33.3 g/dl (32.0-36.0); MEAN CORPUSCULAR VOLUME 86.1 fl (83.0-99.0); MEAN PLATELET VOLUME 10.4 fl (9.4-12.4); MONOCYTES ABSOLUTE AUTO 0.5 K/mm3 (0.0-0.8); MONOCYTES PERCENT AUTO 8.7 % (0.0-8.0); NEUTROPHILS ABSOLUTE AUTO 3.9 K/mm3 (1.8-7.7); NEUTROPHILS PERCENT AUTO 62.9 % (41.0-71.0); PLATELET COUNT,PLT 259 K/mm3 (150-400); RED BLOOD CELL COUNT 5.47 M/mm3 (4.52-5.90); WHITE BLOOD CELL COUNT,WBC 6.23 K/mm3 (3.9-11.3)
[2024-08-08 13:39] LABS: INR 2.79; PROTHROMBIN TIME 27.7 SECONDS (9.7-12.0)
== END 2024-08-08 14:51 | disposition home or self-care (01) ==
LOC: JD.ED 12:12
DX: R04.0 Epistaxis (principal); I48.91 Unspecified atrial fibrillation; E78.00 Pure hypercholesterolemia, unspecified; E11.42 Type 2 diabetes mellitus with diabetic polyneuropathy; E66.9 Obesity, unspecified; Z79.4 Long term (current) use of insulin; Z79.01 Long term (current) use of anticoagulants; Z79.82 Long term (current) use of aspirin; Z79.84 Long term (current) use of oral hypoglycemic drugs; Z79.899 Other long term (current) drug therapy
CPT/HCPCS: 30901; 36415; 85025; 85610; 99283; A9270

== ENCOUNTER 2024-12-19 21:43 | Emergency (ER) | payer MEDICARE, OTHER ==
[2024-12-19 22:41] VITALS: BP 158/89; PULSE 81
== END 2024-12-19 22:40 | disposition home or self-care (01) ==
LOC: JD.ED 21:43
DX: H92.21 Otorrhagia, right ear (principal); I48.91 Unspecified atrial fibrillation; E78.00 Pure hypercholesterolemia, unspecified; E11.42 Type 2 diabetes mellitus with diabetic polyneuropathy; E66.9 Obesity, unspecified; Z79.4 Long term (current) use of insulin; Z79.84 Long term (current) use of oral hypoglycemic drugs; Z79.01 Long term (current) use of anticoagulants; Z79.82 Long term (current) use of aspirin; Z79.899 Other long term (current) drug therapy
CPT/HCPCS: 99282; 99283